=== PATIENT | female | born 1965 ===

== ENCOUNTER 2017-11-10 05:41 | Observation (INO) | payer MEDICAID ==
[2017-11-10 05:54] VITALS: BMI 37.3
--- NOTE | 2017-11-10 06:49 | C.PDOC ---
History Of Present Illness <Jace Huber R - Last Filed: 11/10/17 06:56> <Damaso Hicks - Last Filed: 11/10/17 08:01> Patient gave ahistory of anterior chest wall pain, described to be heaviness with sweating for about 4- 5 min. before admission gto ER. Presently feels better with no pain. She is presently taking aspirin, (Jace Huber R) History Per: Patient History/Exam Limitations: no limitations Onset/Duration Of Symptoms: Mins Current Symptoms Are (Timing): Better Severity: Moderate Pain Scale Rating Of: 4 Quality: Tightness, Pressure Associated Symptoms: Diaphoresis. denies: Nausea, Dyspnea, Syncope Modifying Factors: None Exacerbating Factors: None, Other (palpation) Alleviating Factors: None Recent travel outside of the [place]: No Additional History Per: Patient <Jace Huber - Last Filed: 11/10/17 06:56> <Damaso Hicks - Last Filed: 11/10/17 08:01> Time Seen by Provider: 11/10/17 06:51 Chief Complaint (Nursing): Chest Pain Past Medical History - Medical History PMH: Back Problems, Fibromyalgia, HTN Other PMH: Hx of chest pain Surgical History: No Surg Hx Family History: States: CAD - Social History Hx Alcohol Use: No Hx Substance Use: No - Immunization History Hx Tetanus Toxoid Vaccination: Yes Hx Influenza Vaccination: Yes Hx Pneumococcal Vaccination: No <Jace Huber - Last Filed: 11/10/17 06:56> Vital Signs: Last Vital Signs Temp 98.6 F 11/10/17 07:28 Pulse 60 11/10/17 07:28 Resp 18 11/10/17 07:28 BP 105/66 11/10/17 07:28 Pulse Ox 96 11/10/17 07:28 Review Of Systems Constitutional: Negative for: Fever Cardiovascular: Positive for: Chest Pain. Negative for: Palpitations, Orthopnea , Paroxysmal Noc. Dyspnea, Edema, Light Headedness Respiratory: Negative for: Cough, Shortness of Breath, Hemoptysis Gastrointestinal: Negative for: Nausea, Vomiting, Abdominal Pain Genitourinary: Negative for: Dysuria Musculoskeletal: Negative for: Shoulder Pain, Arm Pain, Back Pain Neurological: Negative for: Weakness, Numbness, Incoordination, Change in Speech , Dizziness Psych: Negative for: Anxiety <Huber,Jace R - Last Filed: 11/10/17 06:56> Physical Exam - Physical Exam Appears: Non-toxic Skin: Normal Color Head: Atraumatic Throat: Normal Neck: Normal Chest: Tenderness (tenderness anterior chest area) Cardiovascular: Rhythm Regular, No Rhythm Irregular, No Edema, No Murmur, No JVD Respiratory: Normal Breath Sounds Gastrointestinal/Abdominal: Normal Exam Extremity: Normal ROM, No Tenderness Neurological/Psych: Oriented x3, Normal Speech Gait: Steady <Jace Huber - Last Filed: 11/10/17 06:56> ED Course And Treatment ECG: Interpreted By Me, Viewed By Me ECG Rhythm: Sinus Rhythm ECG Interpretation: No Acute Changes Interpretation Of ECG: NSR, possible LVH by voltage criteria. Rate From EC O2 Sat by Pulse Oximetry: 98 Pulse Ox Interpretation: Normal <Jace Huber - Last Filed: 11/10/17 06:56> - Laboratory Results Result Diagrams: 11/10/17 07:00 11/10/17 07:00 <Damaso Hicks - Last Filed: 11/10/17 08:01> Medical Decision Making <Jace Huber - Last Filed: 11/10/17 06:56> <Damaso Hicks - Last Filed: 11/10/17 08:01> Medical Decision Making: Signed out to me at change of shift pending labs/CXR. CXR no consolidation. Enzymes negative. Dimer negative. EKG normal. Patient presented with 5 minutes of R sided chest pain that felt like pressure this morning with diaphoresis. She has reproducible chest pain but states that that pain feels different than what she had this morning. She was supposed to take stress test a month ago for this chest pain but never got to it because she has been taking care of her brother who just had an OK and she has been sleeping on a recliner, not a bed. (Damaso Hicks) Disposition <Jace Huber - Last Filed: 11/10/17 06:56> Discussed With : Hoa Salter Doctor Will See Patient In The: Hospital - Disposition Disposition Time: 08:01 - POA Core Measure Indicators: Chest Pain <Damaso Hicks - Last Filed: 11/10/17 08:01> - Disposition Disposition: HOSPITALIZED Condition: FAIR Forms: [facility] (Slovak) - Clinical Impression Clinical Impression: Chest pain
[2017-11-10 07:04] LABS: BASO % 0.4 % (0.0-2.0); EOS # 0.1 K/uL (0.0-0.7); EOS % 1.4 % (0.0-4.0); HEMOGLOBIN 12.4 g/dL (11.0-16.0); LYMPH # 1.5 K/uL (1.0-4.3); LYMPH % 20.5 % (20.0-40.0); MEAN CELL VOLUME 88.2 fL (81.0-99.0); MEAN CORPUSCULAR HEMOGLOBIN 30.8 pg (27.0-31.0); MEAN CORPUSCULAR HGB CONC 34.9 g/dL (33.0-37.0); MEAN PLATELET VOLUME 8.3 fL (7.2-11.7); MONO # 0.5 K/uL (0.0-0.8); MONO % 6.9 % (0.0-10.0); NEUT # 5.2 K/uL (1.8-7.0); NEUT % 70.8 % (50.0-75.0); NRBC % 0.1 % (0.0-2.0); RBC 4.03 Mil/uL (3.80-5.20); RED CELL DISTRIBUTION WIDTH 13.2 % (11.5-14.5); WHITE BLOOD COUNT 7.4 K/uL (4.8-10.8)
[2017-11-10 07:16] LABS: ALB/GLOB RATIO 1.1 (1.0-2.1); ALBUMIN 4.1 g/dL (3.5-5.0); ALT/SGPT 34 U/L (9-52); AST/SGOT 41 U/L (14-36); BLOOD UREA NITROGEN 12 mg/dL (7-17); CALCIUM 8.9 mg/dl (8.6-10.4); GFR AFRICAN-AMERICAN > 60; GFR NON-AFRICAN AMERICAN > 60
--- NOTE | 2017-11-10 08:14 | RAD ---
Chest x-ray two views History: Chest pain. Comparison: None available. Findings: Mild venous congestion. Prominent tortuous and ectatic aorta. Mild cardiomegaly. Degenerative changes in the spine and shoulders. Impression: Mild venous congestion. Prominent tortuous and ectatic aorta. Mild cardiomegaly.
[2017-11-10] MEDS: Enoxaparin 40 mg Syringe SC SCH (09:46)
[2017-11-10] MEDS: Pantoprazole 40 mg EC Tab PO SCH (09:46)
[2017-11-10 12:05] LABS: CK-MB 2.27 ng/mL (0.0-3.38)
[2017-11-10] MEDS: oxyCODONE 30 mg Immediate Release Tab PO SCH ×3 (14:14→21:43)
[2017-11-10 16:02] LABS: BARBITURATES, UR NEGATIVE (NEGATIVE); BENZODIAZEPINES, UR NEGATIVE (NEGATIVE); PHENCYCLIDINE, UR NEGATIVE (NEGATIVE)
[2017-11-10 16:03] LABS: OPIATES, UR POSITIVE (NEGATIVE)
--- NOTE | 2017-11-10 18:18 | CP.PCM.HP ---
Past Patient History - Past Medical History & Family History Past Medical History?: Yes - Past Social History Smoking Status: Never Smoked - CARDIAC Hx Hypertension: Yes - PULMONARY Hx Respiratory Disorders: No - NEUROLOGICAL Hx Neurological Disorder: No - HEENT Hx HEENT Problems: No - RENAL Hx Chronic Kidney Disease: No - ENDOCRINE/METABOLIC Hx Endocrine Disorders: No - HEMATOLOGICAL/ONCOLOGICAL Hx Blood Disorders: No - INTEGUMENTARY Hx Dermatological Problems: No - MUSCULOSKELETAL/RHEUMATOLOGICAL Hx Falls: No Hx Gout: Yes Hx Herniated Disk: Yes (c4,c5) - GASTROINTESTINAL Hx Gastrointestinal Disorders: No - GENITOURINARY/GYNECOLOGICAL Hx Genitourinary Disorders: No - PSYCHIATRIC Hx Psychophysiologic Disorder: No Hx Substance Use: No - SURGICAL HISTORY Hx Hysterectomy: Yes Other/Comment: L hand surgery,. B/L leg surgery,. metal plate in jaw - ANESTHESIA Hx Anesthesia: Yes Hx Anesthesia Reactions: No Hx Malignant Hyperthermia: No Has any member of the family had a problem w/ anesthesia?: No Meds Allergies/Adverse Reactions: Allergies Allergy/AdvReac Type Severity Reaction Status Date / Time Penicillins Allergy Verified 11/10/17 05:53 Physical Exam - Constitutional Appears: Well - Head Exam Head Exam: ATRAUMATIC, NORMAL INSPECTION, NORMOCEPHALIC - Eye Exam Eye Exam: EOMI, Normal appearance, PERRL Pupil Exam: NORMAL ACCOMODATION, PERRL - ENT Exam ENT Exam: Mucous Membranes Moist, Normal Exam - Neck Exam Neck exam: Positive for: Normal Inspection - Respiratory Exam Respiratory Exam: Decreased Breath Sounds - Cardiovascular Exam Cardiovascular Exam: REGULAR RHYTHM, +S1, +S2 - GI/Abdominal Exam GI & Abdominal Exam: Diminished Bowel Sounds, Soft - Rectal Exam Rectal Exam: Deferred Results - Vital Signs Recent Vital Signs: Last Vital Signs Temp 98.2 F 11/10/17 15:00 Pulse 63 11/10/17 16:00 Resp 20 11/10/17 15:00 BP 118/75 11/10/17 17:21 Pulse Ox 96 11/10/17 16:00 - Labs Result Diagrams: 11/10/17 07:00 11/10/17 07:00 Labs: Laboratory Results - last 24 hr 11/10/17 11/10/17 11/10/17 07:00 07:00 07:33 WBC 7.4 RBC 4.03 Hgb 12.4 Hct 35.5 MCV 88.2 MCH 30.8 MCHC 34.9 RDW 13.2 Plt Count 208 MPV 8.3 Neut % (Auto) 70.8 Lymph % (Auto) 20.5 Garrett % (Auto) 6.9 Eos % (Auto) 1.4 Baso % (Auto) 0.4 Neut # (Auto) 5.2 Lymph # (Auto) 1.5 Garrett # (Auto) 0.5 Eos # (Auto) 0.1 Baso # (Auto) 0.0 D-Dimer, Quantitative < 200 Sodium 143 Potassium 3.8 Chloride 102 Carbon Dioxide 28 Anion Gap 16 BUN 12 Creatinine 0.7 Est GFR ( Amer) > 60 Est GFR (Non-Af Amer) > 60 Random Glucose 100 Calcium 8.9 Total Bilirubin 0.5 AST 41 H ALT 34 Alkaline Phosphatase 79 Total Creatine Kinase CK-MB (Mass) Troponin I < 0.0120 Total Protein 7.9 Albumin 4.1 Globulin 3.7 Albumin/Globulin Ratio 1.1 Urine HCG, Qual Urine Opiates Screen Urine Methadone Screen Ur Barbiturates Screen Ur Phencyclidine Scrn Ur Amphetamines Screen U Benzodiazepines Scrn U Oth Cocaine Metabols U Cannabinoids Screen 11/10/17 11/10/17 11/10/17 11:25 15:29 15:29 WBC RBC Hgb Hct MCV MCH MCHC RDW Plt Count MPV Neut % (Auto) Lymph % (Auto) Garrett % (Auto) Eos % (Auto) Baso % (Auto) Neut # (Auto) Lymph # (Auto) Garrett # (Auto) Eos # (Auto) Baso # (Auto) D-Dimer, Quantitative Sodium Potassium Chloride Carbon Dioxide Anion Gap BUN Creatinine Est GFR ( Amer) Est GFR (Non-Af Amer) Random Glucose Calcium Total Bilirubin AST ALT Alkaline Phosphatase Total Creatine Kinase 202 H CK-MB (Mass) 2.27 Troponin I < 0.0120 Total Protein Albumin Globulin Albumin/Globulin Ratio Urine HCG, Qual Negative Urine Opiates Screen Positive H Urine Methadone Screen Negative Ur Barbiturates Screen Negative Ur Phencyclidine Scrn Negative Ur Amphetamines Screen Negative U Benzodiazepines Scrn Negative U Oth Cocaine Metabols Negative U Cannabinoids Screen Negative
[2017-11-10 19:33] LABS: CK-MB 1.24 ng/mL (0.0-3.38)
[2017-11-10] MEDS: Morphine 30 mg SR Tab PO SCH (21:42)
[2017-11-10] MEDS ORDERED: Morphine 30 mg SR Tab PO SCH (22:00)
[2017-11-11] MEDS ORDERED: Tramadol 25 mg PO STA (04:30)
[2017-11-11] MEDS: Pantoprazole 40 mg EC Tab PO SCH (10:10)
[2017-11-11] MEDS: Enoxaparin 40 mg Syringe SC SCH (10:10)
[2017-11-11] MEDS: Morphine 30 mg SR Tab PO SCH ×2 (10:11→21:43)
[2017-11-11] MEDS: oxyCODONE 30 mg Immediate Release Tab PO SCH ×3 (10:21→17:55)
--- NOTE | 2017-11-11 15:32 | CP.PCM.PN ---
Subjective - Date & Time of Evaluation Date of Evaluation: 11/11/17 Time of Evaluation: 13:40 - Subjective Subjective: clinically same Objective - Vital Signs/Intake and Output Vital Signs (last 24 hours): Temp Pulse Resp BP Pulse Ox 97.5 F L 55 L 20 120/70 98 11/11/17 07:00 11/11/17 07:05 11/11/17 07:00 11/11/17 08:00 11/11/17 07:00 Intake and Output: 11/11/17 11/11/17 06:59 18:59 Intake Total 340 500 Balance 340 500 - Medications Medications: Current Medications Aspirin (Aspirin Chewable) 81 mg PO DAILY [facility] Last Admin: 11/11/17 10:09 Dose: 81 mg Docusate Sodium (Colace) 100 mg PO BID [facility] Last Admin: 11/11/17 10:13 Dose: 100 mg Enoxaparin Sodium (Lovenox) 40 mg SC DAILY [facility] Last Admin: 11/11/17 10:10 Dose: 40 mg Metoprolol Tartrate (Lopressor) 25 mg PO BIDBS [facility] Last Admin: 11/11/17 08:00 Dose: 25 mg Morphine Sulfate (Morphine Extended Release Tab) 90 mg PO Q12 [facility] Last Admin: 11/11/17 10:11 Dose: 90 mg Oxycodone HCl (Oxycodone Immediate Release Tab) 30 mg PO Q6 [facility] Last Admin: 11/11/17 12:30 Dose: 30 mg Pantoprazole Sodium (Protonix Ec Tab) 40 mg PO DAILY [facility] Last Admin: 11/11/17 10:10 Dose: 40 mg Pregabalin (Lyrica) 100 mg PO Q12H [facility] Rosuvastatin Calcium (Crestor) 20 mg PO HS [facility] Last Admin: 11/10/17 21:42 Dose: 20 mg - Labs Labs: 11/10/17 07:00 11/10/17 07:00 - Constitutional Appears: Well - Head Exam Head Exam: ATRAUMATIC, NORMAL INSPECTION, NORMOCEPHALIC - Eye Exam Eye Exam: EOMI, Normal appearance, PERRL Pupil Exam: NORMAL ACCOMODATION, PERRL - ENT Exam ENT Exam: Mucous Membranes Moist, Normal Exam - Neck Exam Neck Exam: Full ROM, Normal Inspection. absent: Lymphadenopathy - Respiratory Exam Respiratory Exam: Decreased Breath Sounds - Cardiovascular Exam Cardiovascular Exam: REGULAR RHYTHM, +S1, +S2 - GI/Abdominal Exam GI & Abdominal Exam: Soft, Diminished Bowel Sounds - Rectal Exam Rectal Exam: Deferred
--- NOTE | 2017-11-11 18:36 | PN ---
DATE: SUBJECTIVE: The patient denies any chest pain or dizziness. PHYSICAL EXAMINATION: VITAL SIGNS: Blood pressure 120/70, heart rate 65, temperature 97.5, and respirations 20. HEENT: Normocephalic. CHEST: Clear. HEART: S1 and S2, regular. EXTREMITIES: Trace leg edema. LABORATORY DATA: Three sets of troponins are negative. Urine drug screen is positive for opiates. The patient is on morphine sulfate extended release. Echo and venous Doppler of lower extremities are still pending. Gallbladder ultrasound was performed but the report is still pending. ASSESSMENT: Chest pain, myocardial infarction is ruled out. RECOMMENDATIONS: Continue current Lopressor, Crestor, aspirin, and subcutaneous Lovenox. We will follow echocardiographic study and venous Doppler of lower extremities will be performed tomorrow. Ok Roman MD
[2017-11-12] MEDS: oxyCODONE 30 mg Immediate Release Tab PO SCH ×4 (00:24→18:32)
[2017-11-12] MEDS: Morphine 30 mg SR Tab PO SCH ×2 (10:11→21:31)
[2017-11-12] MEDS: Pantoprazole 40 mg EC Tab PO SCH (10:12)
[2017-11-12] MEDS: Enoxaparin 40 mg Syringe SC SCH (10:13)
[2017-11-12 11:33] LABS: BASO % 0.2 % (0.0-2.0); EOS % 0.7 % (0.0-4.0); LYMPH # 1.4 K/uL (1.0-4.3); LYMPH % 21.3 % (20.0-40.0); MEAN CELL VOLUME 88.6 fL (81.0-99.0); MEAN CORPUSCULAR HEMOGLOBIN 30.4 pg (27.0-31.0); MEAN CORPUSCULAR HGB CONC 34.4 g/dL (33.0-37.0); MEAN PLATELET VOLUME 8.8 fL (7.2-11.7); MONO # 0.3 K/uL (0.0-0.8); MONO % 5.2 % (0.0-10.0); NEUT # 4.6 K/uL (1.8-7.0); NEUT % 72.6 % (50.0-75.0); RBC 4.28 Mil/uL (3.80-5.20); RED CELL DISTRIBUTION WIDTH 12.8 % (11.5-14.5); WHITE BLOOD COUNT 6.4 K/uL (4.8-10.8)
[2017-11-12 11:57] LABS: ALB/GLOB RATIO 1.1 (1.0-2.1); ALT/SGPT 35 U/L (9-52); AST/SGOT 43 U/L (14-36); BLOOD UREA NITROGEN 15 mg/dL (7-17); CALCIUM 8.8 mg/dl (8.6-10.4); GFR AFRICAN-AMERICAN > 60; GFR NON-AFRICAN AMERICAN > 60; HDL CHOLESTEROL 55 mg/dL (30-70)
--- NOTE | 2017-11-12 11:59 | CP.PCM.PN ---
Subjective - Date & Time of Evaluation Date of Evaluation: 11/12/17 Time of Evaluation: 11:56 - Subjective Subjective: PGY2 progress note for Dr. Salter 52 year old female with past medical history of fibromyalgias, HTN, tinnitus is admitted to hospital for chest pain r/o ACS. Pt seen and examined at bedside. Chest pain started all of a sudden and was located on right side with no radiation. No acute events overnight. Pt states chest pain has resolved. Patient is seen walking around hallway without difficulty. Patient denies having any CP, SOB, abd pain, N/V/D/C, F/C. Pt tolerating PO intake. Objective - Vital Signs/Intake and Output Vital Signs (last 24 hours): Temp Pulse Resp BP Pulse Ox 98.2 F 95 H 18 125/83 97 11/12/17 07:00 11/12/17 07:34 11/12/17 07:00 11/12/17 07:00 11/12/17 08:00 - Medications Medications: Current Medications Aspirin (Aspirin Chewable) 81 mg PO DAILY [facility] Last Admin: 11/12/17 10:13 Dose: Not Given Docusate Sodium (Colace) 100 mg PO BID [facility] Last Admin: 11/12/17 10:12 Dose: Not Given Enoxaparin Sodium (Lovenox) 40 mg SC DAILY [facility] Last Admin: 11/12/17 10:13 Dose: Not Given Metoprolol Tartrate (Lopressor) 25 mg PO BIDBS [facility] Last Admin: 11/12/17 09:28 Dose: Not Given Morphine Sulfate (Morphine Extended Release Tab) 90 mg PO Q12 [facility] Last Admin: 11/12/17 10:11 Dose: 90 mg Oxycodone HCl (Oxycodone Immediate Release Tab) 30 mg PO Q6 [facility] Last Admin: 11/12/17 05:32 Dose: 30 mg Pantoprazole Sodium (Protonix Ec Tab) 40 mg PO DAILY [facility] Last Admin: 11/12/17 10:12 Dose: 40 mg Pregabalin (Lyrica) 100 mg PO Q12H [facility] Last Admin: 11/12/17 10:12 Dose: 100 mg Rosuvastatin Calcium (Crestor) 20 mg PO HS [facility] Last Admin: 11/11/17 21:43 Dose: 20 mg - Labs Labs: 11/12/17 11:24 11/10/17 07:00 - Constitutional Appears: Non-toxic, No Acute Distress - Head Exam Head Exam: ATRAUMATIC - ENT Exam ENT Exam: Mucous Membranes Moist - Respiratory Exam Respiratory Exam: Clear to Ausculation Bilateral. absent: Rales, Rhonchi, Wheezes - Cardiovascular Exam Cardiovascular Exam: REGULAR RHYTHM, +S1, +S2. absent: Gallop, Rubs, Murmur - GI/Abdominal Exam GI & Abdominal Exam: Soft, Normal Bowel Sounds. absent: Distended, Firm, Guarding, Rigid, Tenderness, Organomegaly - Extremities Exam Extremities Exam: absent: Pedal Edema, Tenderness - Neurological Exam Neurological Exam: Alert, Awake, Oriented x3 - Psychiatric Exam Psychiatric exam: Normal Affect, Normal Mood - Skin Skin Exam: Dry, Intact, Normal Color, Warm Assessment and Plan - Assessment and Plan (Free Text) Assessment: 52 year old female with past medical history of FM, HTN ir admitted for CP R/O ACS CP R/O ACS - Troponins x 3 negative. EKG was normal on admission - Cardiology is consulted - Echo results pending - RUQ US showed prominent liver measuring 18.9 cm. CBD measuring 8 mm with no evidence of sludge or stone. Normal gallbladder thickness - Pt refusing Aspirin and Lopressor this morning stating that it causes hypotension - continue Rosuvastatin 20 mg po HS - HGB A1c is 5.6. Lipid panel is pending HTN - Currently on Lopressor fibromyalgia - Continue home medication Lyrica Chronic low back pain Pt currently receiving Morphine 90 mg PO Q12 and home medication oxycodone 30 mg po q6 Prophylaxis Protonix Lovenox
[2017-11-12 12:08] LABS: LDL CHOLESTEROL 60 mg/dL (0-129)
--- NOTE | 2017-11-12 14:02 | VASCLAB ---
PROCEDURE: Lower Extremity Venous Duplex Exam. HISTORY: Leg swelling PRIORS: None. TECHNIQUE: Bilateral common femoral, femoral, popliteal and posterior tibial, peroneal and great saphenous veins were evaluated. Flow was assessed with color Doppler, compressibility, assessment of phasic flow and augmentation response. Report prepared by SVITLANA Vigil, RVT FINDINGS: RIGHT: 1. Common Femoral Vein: 1.1. Compressibility - Fully compressible: Thrombus - None : Flow - Phasic: Augmentation -Normal: Reflux - None. 2. Femoral Vein: 2.1. Compressibility - Fully compressible: Thrombus - None : Flow - Phasic: Augmentation -Normal: Reflux - None. 3. Popliteal Vein: 3.1. Compressibility - Fully compressible: Thrombus - None : Flow - Phasic: Augmentation -Normal: Reflux - None. 4. Posterior Tibial Vein: 4.1. Compressibility - Fully compressible: Thrombus - None: Flow - Phasic: Augmentation -Normal: Reflux - None. 5. Peroneal Vein: 5.1. Compressibility - Fully compressible: Thrombus - None: Flow - Phasic: Augmentation -Normal: Reflux - None. 6. Great Saphenous Vein: 6.1. Compressibility - Fully compressible: Thrombus - None: Flow - Phasic: Augmentation - Normal: Reflux - None. LEFT: 1. Common Femoral Vein: 1.1. Compressibility - Fully compressible: Thrombus - None: Flow - Phasic: Augmentation -Normal: Reflux - None. 2. Femoral Vein: 2.1. Compressibility - Fully compressible: Thrombus - None: Flow - Phasic: Augmentation -Normal: Reflux - None. 3. Popliteal Vein: 3.1. Compressibility - Fully compressible: Thrombus - None : Flow - Phasic: Augmentation -Normal: Reflux - None. 4. Posterior Tibial Vein: 4.1. Compressibility - Fully compressible: Thrombus - None: Flow - Phasic: Augmentation -Normal: Reflux - None. 5. Peroneal Vein: 5.1. Compressibility - Fully compressible: Thrombus - None: Flow - Phasic: Augmentation -Normal: Reflux - None. 6. Great Saphenous Vein: 6.1. Compressibility - Fully compressible: Thrombus - None: Flow - Phasic: Augmentation - Normal: Reflux - None. OTHER FINDINGS: Right: None significant. Left: None significant. IMPRESSION: Right: No evidence of deep or superficial vein thrombosis of the right lower extremity. Normal valve function noted of the right side. Left: No evidence of deep or superficial vein thrombosis of the left lower extremity. Normal valve function noted of the left side.
--- NOTE | 2017-11-12 18:41 | CP.PCM.PN ---
Subjective - Date & Time of Evaluation Date of Evaluation: 11/12/17 Time of Evaluation: 12:40 - Subjective Subjective: clinically same Objective - Vital Signs/Intake and Output Vital Signs (last 24 hours): Temp Pulse Resp BP Pulse Ox 97.8 F 73 20 109/71 99 11/12/17 15:00 11/12/17 15:00 11/12/17 15:00 11/12/17 16:30 11/12/17 15:00 - Medications Medications: Current Medications Aspirin (Aspirin Chewable) 81 mg PO DAILY [facility] Last Admin: 11/12/17 10:13 Dose: Not Given Docusate Sodium (Colace) 100 mg PO BID [facility] Last Admin: 11/12/17 18:31 Dose: 100 mg Enoxaparin Sodium (Lovenox) 40 mg SC DAILY [facility] Last Admin: 11/12/17 10:13 Dose: Not Given Metoprolol Tartrate (Lopressor) 25 mg PO BIDBS [facility] Last Admin: 11/12/17 16:30 Dose: 25 mg Morphine Sulfate (Morphine Extended Release Tab) 90 mg PO Q12 [facility] Last Admin: 11/12/17 10:11 Dose: 90 mg Oxycodone HCl (Oxycodone Immediate Release Tab) 30 mg PO Q6 [facility] Last Admin: 11/12/17 18:32 Dose: 30 mg Pantoprazole Sodium (Protonix Ec Tab) 40 mg PO DAILY [facility] Last Admin: 11/12/17 10:12 Dose: 40 mg Pregabalin (Lyrica) 100 mg PO Q12H [facility] Last Admin: 11/12/17 10:12 Dose: 100 mg Rosuvastatin Calcium (Crestor) 20 mg PO HS [facility] Last Admin: 11/11/17 21:43 Dose: 20 mg - Labs Labs: 11/12/17 11:24 11/12/17 11:24 - Constitutional Appears: Well - Head Exam Head Exam: ATRAUMATIC, NORMAL INSPECTION, NORMOCEPHALIC - Eye Exam Eye Exam: EOMI, Normal appearance, PERRL Pupil Exam: NORMAL ACCOMODATION, PERRL - ENT Exam ENT Exam: Mucous Membranes Moist, Normal Exam - Neck Exam Neck Exam: Full ROM, Normal Inspection. absent: Lymphadenopathy - Respiratory Exam Respiratory Exam: Decreased Breath Sounds - Cardiovascular Exam Cardiovascular Exam: REGULAR RHYTHM, +S1, +S2 - GI/Abdominal Exam GI & Abdominal Exam: Soft, Diminished Bowel Sounds - Rectal Exam Rectal Exam: Deferred
--- NOTE | 2017-11-12 19:52 | US ---
Right upper quadrant abdominal ultrasound History: Right upper quadrant abdominal pain. Comparison: None available. Technique: Real-time sonography was performed through right upper quadrant of the abdomen. Findings: Liver: Prominent measuring 18.9 centimeters in length. Increased echogenicity of the hepatic parenchymal cortex suggestive for fatty infiltration versus hepatic parenchymal disease. Clinical correlation. Adjacent to the gallbladder fossa there are hypoechoic foci within the liver measuring up to 1.6 centimeters which may represent focal fatty sparing. This may be better delineated with multiphasic CT scan if clinically indicated. Gallbladder: No calculi or sludge. Normal wall thickness of 1.5 millimeters. Negative sonographic Dickinson's sign. Prominent common bile duct measuring up to 8 millimeters, dilated. Pancreas not well visualized. Limited visualization of the aorta and IVC. Right kidney: 11.7 x 3.9 x 5.0 centimeters. No calculi or hydronephrosis. Impression: 1. Prominent liver measuring 18.9 centimeters in length. Increased echogenicity of the hepatic parenchymal cortex suggestive for fatty infiltration versus hepatic parenchymal disease. Clinical correlation. Adjacent to the gallbladder fossa, there are hypoechoic foci within the liver measuring up to 1.6 centimeters which may represent focal fatty sparing. This may be better delineated with multiphasic CT scan if clinically indicated. 2. Prominent common bile duct measuring up to 8 millimeters, dilated. Clinical correlation.
--- NOTE | 2017-11-12 21:32 | PN ---
DATE: SUBJECTIVE: The patient denies any chest pain or shortness of breath. PHYSICAL EXAMINATION: VITAL SIGNS: Blood pressure 124/76, heart rate 73, temperature 97.8, respirations 20. HEENT: Normocephalic. CHEST: Clear. HEART: S1 and S2 regular. EXTREMITIES: Trace edema. LABORATORY DATA: Today's SMA-7 is within normal limits except for glucose of 192. Lipid profile is within normal limits. CBC is within normal limits. Venous Doppler of lower extremity, no evidence of DVT in the preliminary report. Preliminary echo report reveals ejection fraction estimated at 53%. ASSESSMENT: 1. Chest pain, myocardial infarction is ruled out. 2. Uncontrolled diabetes mellitus. RECOMMENDATIONS: Continue current aspirin, Crestor, Lopressor, subcutaneous Lovenox, and oral Protonix. Follow up official echocardiographic study as well as abnormal gallbladder ultrasound report. Ok Roman MD
[2017-11-13] MEDS: oxyCODONE 30 mg Immediate Release Tab PO SCH ×2 (00:30→06:06)
[2017-11-13 06:32] LABS: BASO % 0.4 % (0.0-2.0); EOS # 0.1 K/uL (0.0-0.7); EOS % 1.6 % (0.0-4.0); HEMOGLOBIN 12.2 g/dL (11.0-16.0); LYMPH # 2.2 K/uL (1.0-4.3); LYMPH % 30.7 % (20.0-40.0); MEAN CELL VOLUME 88.4 fL (81.0-99.0); MEAN CORPUSCULAR HEMOGLOBIN 30.2 pg (27.0-31.0); MEAN CORPUSCULAR HGB CONC 34.2 g/dL (33.0-37.0); MEAN PLATELET VOLUME 8.7 fL (7.2-11.7); MONO # 0.7 K/uL (0.0-0.8); MONO % 9.1 % (0.0-10.0); NEUT # 4.2 K/uL (1.8-7.0); NEUT % 58.2 % (50.0-75.0); RBC 4.05 Mil/uL (3.80-5.20); RED CELL DISTRIBUTION WIDTH 12.9 % (11.5-14.5); WHITE BLOOD COUNT 7.2 K/uL (4.8-10.8)
[2017-11-13 06:50] LABS: BLOOD UREA NITROGEN 15 mg/dL (7-17); CALCIUM 8.5 mg/dl (8.6-10.4); GFR AFRICAN-AMERICAN > 60; GFR NON-AFRICAN AMERICAN > 60
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
[2017-11-13 07:45] VITALS: BP 97/64; RESP 18; TEMP 98.2; O2SAT 96
[2017-11-13 08:03] VITALS: PULSE 74
[2017-11-13] MEDS: Morphine 30 mg SR Tab PO SCH (09:34)
[2017-11-13] MEDS: Pantoprazole 40 mg EC Tab PO SCH (09:34)
--- NOTE | 2017-11-13 09:58 | CP.PCM.PN ---
Subjective - Date & Time of Evaluation Date of Evaluation: 11/13/17 Time of Evaluation: 08:00 - Subjective Subjective: PGY2 progress note for Dr. Salter: 52 year old female with past medical history of fibromyalgias, HTN, tinnitus is admitted to hospital for chest pain r/o ACS. Pt seen and examined at bedside. She states he chest pain has resolved. No acute events overnight. Pt states chest pain has resolved. Patient is seen walking around hallway without difficulty. Patient denies having any CP, SOB, abd pain, N/V/D/C, F/C. Pt tolerating PO intake. She states she would like to go home today even if all of her results are not back. Objective - Vital Signs/Intake and Output Vital Signs (last 24 hours): Temp Pulse Resp BP Pulse Ox 98.2 F 74 18 97/64 L 96 11/13/17 07:00 11/13/17 07:30 11/13/17 07:00 11/13/17 07:00 11/13/17 07:00 - Medications Medications: Current Medications Aspirin (Aspirin Chewable) 81 mg PO DAILY [facility] Last Admin: 11/13/17 09:34 Dose: 81 mg Docusate Sodium (Colace) 100 mg PO BID [facility] Last Admin: 11/12/17 18:31 Dose: 100 mg Enoxaparin Sodium (Lovenox) 40 mg SC DAILY [facility] Last Admin: 11/12/17 10:13 Dose: Not Given Metoprolol Tartrate (Lopressor) 25 mg PO BIDBS [facility] Last Admin: 11/13/17 08:30 Dose: Not Given Morphine Sulfate (Morphine Extended Release Tab) 90 mg PO Q12 [facility] Last Admin: 11/13/17 09:34 Dose: 90 mg Oxycodone HCl (Oxycodone Immediate Release Tab) 30 mg PO Q6 [facility] Last Admin: 11/13/17 06:06 Dose: 30 mg Pantoprazole Sodium (Protonix Ec Tab) 40 mg PO DAILY [facility] Last Admin: 11/13/17 09:34 Dose: 40 mg Pregabalin (Lyrica) 100 mg PO Q12H [facility] Last Admin: 11/13/17 08:29 Dose: 100 mg Rosuvastatin Calcium (Crestor) 20 mg PO HS [facility] Last Admin: 11/12/17 21:24 Dose: 20 mg - Labs Labs: 11/13/17 06:26 11/13/17 06:26 - Constitutional Appears: Non-toxic, No Acute Distress - Head Exam Head Exam: ATRAUMATIC, NORMAL INSPECTION - Eye Exam Eye Exam: EOMI, PERRL Pupil Exam: NORMAL ACCOMODATION - ENT Exam ENT Exam: Mucous Membranes Moist - Respiratory Exam Respiratory Exam: Clear to Ausculation Bilateral, NORMAL BREATHING PATTERN. absent: Accessory Muscle Use, Wheezes, Respiratory Distress - Cardiovascular Exam Cardiovascular Exam: REGULAR RHYTHM. absent: +S1, +S2 - GI/Abdominal Exam GI & Abdominal Exam: Soft, Normal Bowel Sounds. absent: Distended, Firm, Guarding, Tenderness - Extremities Exam Extremities Exam: Normal Inspection - Back Exam Back Exam: NORMAL INSPECTION. absent: CVA tenderness (L), CVA tenderness (R), paraspinal tenderness - Neurological Exam Neurological Exam: Alert, Awake, Normal Gait, Oriented x3 Neuro motor strength exam: Left Upper Extremity: 5, Right Upper Extremity: 5, Left Lower Extremity: 5, Right Lower Extremity: 5 - Psychiatric Exam Psychiatric exam: Normal Affect, Normal Mood - Skin Skin Exam: Dry, Intact, Normal Color, Warm Assessment and Plan - Assessment and Plan (Free Text) Assessment: Assessment: 52 year old female with past medical history of FM, HTN ir admitted for CP R/O ACS CP R/O ACS - Troponins x 3 negative. EKG was normal on admission - Cardiology is consulted - Echo results pending - RUQ US showed prominent liver measuring 18.9 cm. CBD measuring 8 mm with no evidence of sludge or stone. Normal gallbladder thickness - Pt refusing Aspirin and Lopressor this morning stating that it causes hypotension - continue Rosuvastatin 20 mg po HS - HGB A1c is 5.6. Lipid panel is pending HTN - Currently on Lopressor fibromyalgia - Continue home medication Lyrica Chronic low back pain Pt currently receiving Morphine 90 mg PO Q12 and home medication oxycodone 30 mg po q6 Prophylaxis Protonix Lovenox Patient is stable for DC home today. Patient is to follow up with her primary care within one week of discharge. Patient is to resume all of her home medications and also take the following new medications: Lopressor 25mg by mouth twice a day, Aspirin 81mg by mouth daily, and Crestor 20mg by mouth once daily at bedtime. She is to return to the emergency room if symptoms return. All instructions explained to the patient and she agrees.
[2017-11-13] MEDS: Enoxaparin 40 mg Syringe SC SCH (10:49)
--- NOTE | 2017-11-13 17:11 | PN ---
DATE: SUBJECTIVE: The patient denies chest pain. PHYSICAL EXAMINATION VITAL SIGNS: Blood pressure 97/64, heart rate 76, temperature 98.2, respirations 18. HEENT: Normocephalic. CHEST: Clear. HEART: S1, S2 regular. EXTREMITIES: No edema. LABORATORY DATA: Today's CBC is within normal limits. SMA-7 is within normal limits. Calcium is slightly being normal at 8.5. ASSESSMENT: 1. Chest pain, myocardial infarction is ruled out. 2. Fatty liver versus parenchymal liver disease. 3. Prominent bile duct measuring up to 8 mm. RECOMMENDATIONS: From the cardiac point of view, the patient can be discharged unless further GI workup is planned such as CAT scan of the abdomen. I did review the echocardiographic study, which was unremarkable. However, the patient is strongly advised to have an outpatient pharmacological stress test to be scheduled by her primary physician. Ok Roman MD
--- NOTE | 2017-11-13 21:55 | CARD ---
APPROVED REPORT EXAM: Two-dimensional and M-mode echocardiogram with Doppler and color Doppler. Other Information Quality : [employer] : INDICATION Chest Pain RISK FACTORS Hypertension Obesity 2D DIMENSIONS IVSd0.8 (0.7-1.1cm)LVDd5.2 (3.9-5.9cm) PWd0.9 (0.7-1.1cm)LVDs4.1 (2.5-4.0cm) FS (%) 22.0 %LVEF (%)53.0 (>50%) M-Mode DIMENSIONS Left Atrium (MM)3.62 (2.5-4.0cm)Aortic Root3.14 (2.2-3.7cm) Aortic Cusp Exc.2.12 (1.5-2.0cm) Mitral Valve MV E Tjkazjpw12.3cm/sMV A Fgjyvvft50.0cm/sE/A ratio1.1 TDI E/Lateral E'0.0E/Medial E'0.0 LEFT VENTRICLE The left ventricle is normal size. There is normal left ventricular wall thickness. Left ventricle systolic function is low normal. The Ejection Fraction is 50-55%. There is normal LV segmental wall motion. The left ventricular diastolic function is normal. No left ventricle thrombus noted on this study. RIGHT VENTRICLE The right ventricle is normal size. The right ventricular systolic function is normal. ATRIA The left atrium size is normal. The right atrium size is normal. AORTIC VALVE The aortic valve is mildly sclerotic. The aortic valve is probably trileaflet. No aortic regurgitation is present. There is no aortic valvular stenosis. There is no aortic valvular vegetation. MITRAL VALVE Mitral annular calcification is mild to moderate. There is no evidence of mitral valve prolapse. There is no mitral valve stenosis. Mitral regurgitation is mild. TRICUSPID VALVE The tricuspid valve is normal in structure. There is trace tricuspid regurgitation. There is no pulmonary hypertension. There is no tricuspid valve prolapse or vegetation. There is no tricuspid valve stenosis. PULMONIC VALVE The pulmonic valve is not well visualized. There is no pulmonic valvular regurgitation. GREAT VESSELS The aortic root is normal in size. The IVC is normal in size and collapses >50% with inspiration. PERICARDIAL EFFUSION There is no pericardial effusion. There is no pleural effusion. <Conclusion> The left ventricle is normal size. Left ventricle systolic function is low normal. The Ejection Fraction is 50-55%. The left ventricular diastolic function is normal. The right ventricle is normal size. The right ventricular systolic function is normal. The left atrium size is normal. The right atrium size is normal. Mitral regurgitation is mild. There is trace tricuspid regurgitation.
== END 2017-11-13 13:01 | disposition home or self-care (01) ==
LOC: C.ER 05:41 → C.9E 07:58 → C.6T 08:38
PROVIDERS: ADMIT Internal Medicine Nephrology; ATTEND Internal Medicine Nephrology
DX: R07.9 Chest pain, unspecified (principal); I10 Essential (primary) hypertension; Z79.82 Long term (current) use of aspirin; Z79.01 Long term (current) use of anticoagulants; M79.7 Fibromyalgia; Z82.49 Family history of ischemic heart disease and other diseases of the circulatory system; M10.9 Gout, unspecified; Z88.0 Allergy status to penicillin; G89.29 Other chronic pain; M54.5 Low back pain; E11.65 Type 2 diabetes mellitus with hyperglycemia
CPT/HCPCS: 36415; 71046; 76705; 80048; 80053; 80061; 80324; 80345; 80346; 80349; 80353; 80358; 80361; 83036; 83992; 84484; 84703; 85025; 85378; 93306; 93970; 99285; G0378; J1650